=== PATIENT | male | born 1965 | race Hispanic/Latino ===

== ENCOUNTER → 2022-02-11 06:58 | Outpatient (CLI) | payer OTHER, SELFPAY ==
[2022-02-11 22:33] LABS: COVID19 - ORCAS (NP or Nasal) Negative (Negative)
== END ==
PROVIDERS: Family Provider Family Medicine; PCP Specialist; Visit Provider Family Medicine
DX: Z20.822 Contact with and (suspected) exposure to COVID-19 (principal); Z01.812 Encounter for preprocedural laboratory examination
CPT/HCPCS: U0003

== ENCOUNTER → 2022-03-18 07:40 | Outpatient (CLI) | payer OTHER, SELFPAY ==
[2022-03-18 20:52] LABS: COVID19 - ORCAS (NP or Nasal) Negative (Negative)
== END ==
PROVIDERS: Family Provider Family Medicine; PCP Specialist; Visit Provider Family Medicine
DX: Z01.812 Encounter for preprocedural laboratory examination (principal); Z20.822 Contact with and (suspected) exposure to COVID-19
CPT/HCPCS: U0003